=== PATIENT | female | born 1975 | race Caucasian/White ===

== ENCOUNTER → 2019-05-23 | Outpatient (CLI) | payer OTHER, SELFPAY ==
[2019-05-23 13:43] LABS: Hematocrit 40.8 % (37-47); Hemoglobin 13.3 g/dL (12.0-15.0); Mean Corp Hgb Conc 32.6 g/dL (32-36); Mean Corpuscular Hgb 30.7 pg (27.0-32.0); Mean Corpuscular Volume 94.2 fL (81-99); Mean Platelet Vol. 9.6 fl (6.2-12.0); Platelet Count 199 K/mm3 (150-450); RBC Distribution Width CV 12.7 % (11.6-14.6); RBC Distribution Width SD 43.8 fl (35.1-43.9); Red Blood Count 4.33 M/mm3 (4.2-5.4); White Blood Count 4.1 K/mm3 (4.4-11.0)
[2019-05-23 14:01] LABS: Anion Gap 4 (5-15); BUN 11 mg/dL (7-18); BUN/Creat Ratio 14.5 RATIO (10-20); Calcium,Total 8.9 mg/dL (8.5-10.1); Chloride 107 mmol/L (98-107); Cholesterol 175 mg/dL (200); Creatinine, Serum 0.76 mg/dL (0.55-1.02); EST Glomerular Filtration Rate 89 mL/min (>60); Est Glom Filt Rate - Afr Amer 107 mL/min (>60); Glucose 87 mg/dL (74-106); High Density Lipoprotein 67 mg/dL; Potassium 3.9 mmol/L (3.5-5.1); Sodium Level 140 mmol/L (136-145); Thyroid Stim Hormone (TSH) 2.82 uIU/mL (0.358-3.74); Triglycerides 71 mg/dL; Very Low Density Lipoprotein 14 mg/dL (5-40); Vitamin D,25 Hydroxy 39.5 ng/mL (29.95-100.01)
[2019-05-25 16:07] LABS: Age Gdln ACOG Testing 30-65 (.)
[2019-05-25 21:32] LABS: HPV APTIMA, High Risk Negative (Negative); HPV Reflexed? YES, CHARGE PATIENT
== END | disposition home or self-care (01) ==
LOC: WOBLAB 10:19
PROVIDERS: Visit Provider Obstetrics & Gynecology
DX: E55.9 Vitamin D deficiency, unspecified (principal); Z12.4 Encounter for screening for malignant neoplasm of cervix; Z13.9 Encounter for screening, unspecified
CPT/HCPCS: 36415; 80048; 80061; 82306; 84443; 85027; 87624; 88175; G0145

== ENCOUNTER → 2019-06-08 16:44 | Outpatient (CLI) | payer OTHER, SELFPAY ==
--- NOTE | 2019-06-08 16:48 | BI_ITS ---
MAMMOGRAPHY - BILATERAL SCREENING REASON FOR EXAM: Female, 44 years old. Routine annual screening examination. PERTINENT HISTORY: Non-contributory. TECHNIQUE: Digital bilateral breast sandra (3D mammographic acquisition) in the CC and MLO projections. 2-D mediolateral oblique (MLO) and craniocaudad (CC) views of both breasts were obtained. CAD: Full Field Digital Mammography with Computer Added Detection was performed. COMPARISON: None. Baseline examination. FINDINGS: Breast Composition: The breasts are heterogeneously dense, which may obscure small masses. There are no dominant masses or suspicious calcifications. No other significant abnormalities are identified. BI/SCREEN MAMM (CAD) W/SANDRA BILAT IMPRESSION: Negative screening mammogram. Yearly followup mammogram recommended. (A) ASSESSMENT CATEGORY: BIRADS Category 1: Negative. A letter regarding these results will be sent to the patient by the facility within 30 days. Approximately 10% of breast cancers are not detected by mammography. A normal mammogram should not delay biopsy of a clinically suspicious abnormality. [id number] Electronically Signed: Norm Fortune, at 9:31 EST , Service support ,
== END ==
PROVIDERS: Family Provider Family Medicine; PCP Family Medicine; Referring Provider Obstetrics & Gynecology; Visit Provider Obstetrics & Gynecology
DX: Z12.31 Encounter for screening mammogram for malignant neoplasm of breast (principal)
CPT/HCPCS: 77063; 77067

== ENCOUNTER → 2020-07-01 | Outpatient (CLI) | payer OTHER, SELFPAY ==
--- NOTE | 2020-07-01 14:15 | EMB_PTH ---
PATIENT: KENDRICK WALDEN LOC: [facility] U#:[id number] AGE/SX: 45/F ROOM: RE07/01/[address]: Dr. Chris Anna MD : 1975 BED: DIS: 07/01/2020 SPEC #: [id number] RECD: 07/01/20 17:09 STATUS: ROCIO REQ #: [id number] AUGUSTUS: 07/01/20 14:[address]: Chris Anna DEPT: SURGICAL PATHOLOGY RECD BY: Carmen Sanders ENTERED: 07/02/20 07:36 SP TYPE: ENDOM BX/C OTHR DR: Dr. Rick Cancino MD Tissues: Endometrium, NOS Procedures: Surgery Specimen Level IV HEADER OPERATION: Endometrial biopsy PRE-OP DIAGNOSIS: N95.6 TISSUE SUBMITTED: Endometrial biopsy MICROSCOPIC DIAGNOSIS Endometrium, biopsy: Secretory endometrium. AM:rosaura 07/03/20 MICROSCOPIC DESCRIPTION Slides are reviewed. GROSS DESCRIPTION Received in fixative is one container labeled with the patient's name and designated endometrial biopsy. The specimen consists of multiple irregular fragments of light pink-hoskins soft tissue that in aggregate measure 2 x 1 x 0.1 cm. The specimen is totally submitted in one cassette. / AM:rosaura 07/02/20 TC:5 CPT: 20432
== END | disposition home or self-care (01) ==
LOC: LABSPEC 14:53
PROVIDERS: PCP Family Medicine; Visit Provider Obstetrics & Gynecology
DX: N85.8 Other specified noninflammatory disorders of uterus (principal)
CPT/HCPCS: 88305

== ENCOUNTER 2020-08-12 08:23 | Day surgery (SDC) | payer OTHER, SELFPAY ==
[2020-08-07 17:01] LABS: Hematocrit 38.5 % (37-47); Hemoglobin 12.3 g/dL (12.0-15.0); Mean Corp Hgb Conc 31.9 g/dL (32-36); Mean Corpuscular Volume 93.9 fL (81-99); Mean Platelet Vol. 9.4 fl (6.2-12.0); Platelet Count 273 K/mm3 (150-450); RBC Distribution Width CV 12.7 % (11.6-14.6); RBC Distribution Width SD 44.2 fl (35.1-43.9); White Blood Count 5.6 K/mm3 (4.4-11.0)
[2020-08-07 17:12] LABS: Partial Thromboplast Time 23.6 Seconds (24.1-36.2); Prothrombin Time (Protime)PT. 12.3 SECONDS (11.7-14.9)
[2020-08-07 18:13] LABS: Thyroid Stim Hormone (TSH) 1.69 uIU/mL (0.358-3.74)
--- NOTE | 2020-08-11 17:38 | PCM.HP.BLA ---
History and Physical Date of Admission: 08/12/20 Surgical History and Physical Nicole Rivera, a 45 year old female 2 0 1 0 2, presents for HTA, Hysteroscopy and D and C on August 12, 2020 at 10:30. --Menorrhagia --Regular heavy menses and LMP of 07-31-20 lasting her average of 5-6 days. Associated signs and symptoms are heavy menses noted for last year. Additional comments are: Admits pain has improved since late Wednesday.; Additional comments are: history of tubal. EMBx and U/S ok. MEDICATIONS HISTORY: ALLERGIES: NKDA, Adhesive, Rash, Betadine, Rash, Adhesive, Rash, Betadine, Rash, Formaldehyde, Respiratory distress, Augmentin and Skin irritation Infections - Chicken pox and mono Illnesses - eczema Accidents - no injuries of consequence Hospitalizations - Childbirth and see surgery Review of Systems: GENERAL - Denies fever, or chills SKIN - Denies skin changes EYES - Denies visual changes EARS - Denies difficulty hearing NOSE - Denies nasal congestion or bleeding MOUTH - Denies sore throat or difficulty swallowing NECK - Denies pain or swelling RESPIRATORY - Denies shortness of breath or wheezing CARDIOVASCULAR - Denies palpitations or chest pain GASTROINTESTINAL - Denies nausea, vomiting, diarrhea, constipation GENITOURINARY - Denies dysuria, frequency of urination, incontinence of urine MUSCULOSKELETAL - Denies joint or muscle pain NEUROLOGICAL - Denies localized numbness or weakness PSYCHIATRIC - Denies depression or anxiety ENDOCRINE - Denies heat or cold intolerance, weight loss or gain HEMATO-IMMUNOLOGIC - Denies excessive bleeding with cuts SOCIAL HISTORY: Alcohol Use - socially Smoking - Never Diet - moderate, balanced diet and caffeine < 2 drinks per day Lifestyle - Exercise - minimal Seat Belt Use - always 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 Father: Sanders's disease-lung problem. Paternal Grandmother: Colon Cancer. Paternal Grandfather: DM II. MENSTRUAL HISTORY: LMP Known?- Definite Amount/Duration - 4-5 days, Regularity - Irregular, Frequency - variable days, LMP - 07/31/20, Age Onset Menarche - 14 PAST PREGNANCIES: Total Pregnancies - 3; Full Term Pregnancies - 2; Premature - 0; Abortions, Induced - 0; Abortions, Spontaneous - 1; Ectopics - 0; Multiple Births - 0; Living Children - 2 SURGICAL HISTORY: 1. BUNIONS 1998 R AND L FOOT 2. 07/03/2011 ; Renee Kinsey M.D. 3. Appendectomy, , 2017 4. Umbilical hernia, 2016 5. 07/04/2014 /BTO ; Renee Kinsey M.D. PHYSICAL EXAM BP- 124/76 Sitting, Right arm, regular cuff Weight- 191.29557 lbs Height- 66.75 inch BMI:30.20 CONSTITUTIONAL - NAD, well nourished, and well developed HEENT - Normocephalic, PERRLA, EOMI NECK - no nuchal rigidity LUNGS - clear to auscultation CARDIAC - normal s1, normal s2, no s3 BREAST - no dominant masses, no tenderness, no axillary adenopathy, no nipple discharge and no skin changes ABDOMEN - no masses, no tenderness EXTREMITIES - No edema or calf tenderness NEUROLOGICAL - Cranial nerves II-XII grossly intact PSYCHIATRIC - A and O to time, place, person, mood and affect PAP SMEAR - done DETAILED PELVIC EXAM External Genital Vagina - non-tender without lesions Urethra/Urethral Meatus - non-tender Bladder - non-tender Vagina - vaginal olivarez are pink and moist without loss of rugae and no evidence of atropy Cervix - without cervical motion tenderness and has normal size and features without evident lesions Uterus - 5-6 cm in size, mobile and nontender Adnexa - clear without masses or tenderness Rectal - deferred ASSESSMENT/PLAN: 1. Dysmenorrhea and Premenopausal Menorrhagia Reviewed pelvic u/s with patient and it is normal with possible EM polyp present. Discussed options for treatment including OCPs, ablation, or other surgery. Pt desires to proceed with the ablation. Discussed RBAs and all questions answered.
--- NOTE | 2020-08-12 | EMB_PTH ---
PATIENT: KENDRICK WALDEN [place] [facility] [place][id number] AGE/SX: 45/F ROOM: RE08/12/[address]: Dr. Chris Anna MD : 1975 BED: DIS: 08/12/2020 SPEC #: [id number] RECD: 08/12/20 13:16 STATUS: ROCIO RENisreen #: [id number] AUGUSTUS: 08/12/20 00:[address]: Chris Anna DEPT: SURGICAL PATHOLOGY RECD BY: Shar Meraz ENTERED: 08/13/20 07:20 SP TYPE: ENDOM BX/C OTHR DR: Dr. Rick Cancino MD Tissues: Endometrium, NOS Procedures: Surgery Specimen Level IV HEADER OPERATION: Hysteroscopy, D & C hydroblation PRE-OP DIAGNOSIS: Menorrhagia TISSUE SUBMITTED: Endometrial curettings and polyp MICROSCOPIC DIAGNOSIS Endometrial polyp and curettings: Polypoid fragments of proliferative endometrium with focal recent hemorrhage. AM:rosaura 08/13/2020 MICROSCOPIC DESCRIPTION Slides are reviewed. GROSS DESCRIPTION Received in fixative is one container labeled with the patient's name and designated endometrial curettings and polyp. The specimen consists of multiple fragments of hemorrhagic soft tissue that in aggregate measure 3 x 2.5 x 0.3 cm. The specimen is totally submitted in one cassette. / SJ:rosaura 08/12/20 TC:5 CPT: 05030
[2020-08-12 08:56] LABS: Internal QC Validated? YES +Cl - CLEAR BKGD; Pregnancy, Urine Negative Negative
[2020-08-12 09:10] VITALS: BP 109/77; PULSE 83; RESP 16; TEMP 36.3; O2SAT 100; BMI 29.3
[2020-08-12] MEDS: Lactated Ringers 1,000 ML 100 ML IV (09:13)
--- NOTE | 2020-08-12 12:11 | OP.PCM_ITS ---
Report of Operation Date of Procedure: 08/12/20 Pre-Operative Diagnosis: Menorrhagia Post-Operative Diagnosis: Menorrhagia Surgery/Procedure Performed:: Diagnostic Hysteroscopy, Dilation and Curettage, Hydrothermal Ablation Description of Surgical Findings:: 8 cm endometrial cavity with plush endometrium noted. No polyps or fibroids visualized. Cervix which protruded to within 1 cm of the uterine introitus with tenaculum pulldown which would make laparoscopic-assisted vaginal hysterectomy feasible if hysterectomy were ever needed. Type of Anesthesia:: General - LMA Anesthesiologist: González Lo Specimen's removed: Endometrial curettings Estimated Blood Loss (mL): Minimal Fluids Replaced: Crystalloid Description of Procedure: Surgeon: Chris Anna MD, FACOG Indication: This is a 45 year old patient who has been having problems with extremely heavy menses. Conservative measures have not been helpful. Endometrial sampling was benign and pelvic ultrasound showed that ablation may be helpful. Pt has been counseled regarding the risks, benefits and alternatives of this procedure and all questions answered. She understands that only about half of patients will have amenorrhea after this procedure. Procedure: Patient taken to the operating room where after induction of general anesthesia the patient was prepped and draped in the usual sterile fashion. Bladder was drained of urine with a catheter. Anterior cervix grasped and cervix was dilated to about 17 [place] size. Hysteroscopic hydrothermal ablation (HTA) unit was place in the cervix and the above findings were noted. HTA unit was removed and the uterus was gently curretted removing all contents. An HTA ablation cycle was then carried out at about 90 degrees Centigrade for 10 minutes with virtually no fluid loss during the procedure. After an appropriate cool down the HTA unit was removed with minimal bleeding noted. The patient tolerated the procedure well and was taken to the recovery room in satisfactory condition. Sponge, instruments and needle counts were all correct. There were no apparent complications of the surgery. Cefotetan 2 gms IV was given prior to the procedure. Grafts/Implants Used: None - Complications None - Admit VTE Documentation VTE Present on Admission: Yes VTE Mechan Device Prophylaxis: SCD's
--- NOTE | 2020-08-12 12:15 | DCINST_ITS ---
Discharge Diet: No Restrictions Discharge Activity: Return to Normal Activity, May not drive while taking narcotic pain medications., May Shower, May Take a Tub Bath May resume sexual activity in: 4 weeks Call your doctor if you observe: Fever of 101 or Higher, Inability to urinate, Inability to have a bowel movement, Using more than one pad per hour Allergies/Adverse Reactions: Allergies Opsite clear plastic adhesive Allergy (Uncoded 07/02/14 14:34) Rash Medications to take at Discharge Folic/Mvi Ther-Min/Lycop/Lut [Corvita Tablet] 1 ea PO DAILY 08/02/20 Lactobacillus Acidophilus [Acidophilus Probiotic] 1 ea PO DAILY 08/02/20 Omega3,5,6,7,9 No.1/[place] Oil [Complete [place] Softgel] 1 ea PO DAILY 08/02/20 Oxycodone [Oxyir] 5 mg PO Q6H PRN PRN 7 Days #7 tablet 08/12/20 The following prescriptions were given: Oxycodone [Oxyir] 5 mg PO Q6H PRN PRN 7 Days #7 tablet PRN Reason: Pain Score 6-10 Transmission Status: Sent to [facility] Primary Care Physician: Rick Cancino MD [Primary Care Provider] - Test Results: Test results from this visit will be discussed in further detail at your follow- up appointment, if applicable. Please Follow Up With: Chris Anna MD When: 3-4 weeks
[2020-08-12 12:21] VITALS: BP 106/70; BP 109/77; PULSE 83; RESP 16; TEMP 36.2; O2SAT 100
[2020-08-12 12:31] VITALS: BP 102/66; BP 109/77; PULSE 67; RESP 14; O2SAT 97
[2020-08-12 12:45] VITALS: BP 109/77; BP 120/71; PULSE 65; RESP 14; O2SAT 98
[2020-08-12 12:51] VITALS: BP 109/74; BP 109/77; PULSE 60; RESP 14; TEMP 36.9; O2SAT 100
[2020-08-12] MEDS: oxyCODONE 5 MG Tablet PO (14:00)
[2020-08-12 14:33] VITALS: BP 109/77; BP 113/77; PULSE 65; RESP 16; TEMP 36.8; O2SAT 100
== END 2020-08-12 14:35 | disposition home or self-care (01) ==
LOC: SDC 08:26 → AC 08:28
PROVIDERS: Anesthesiology; PCP Family Medicine; Referring Provider Obstetrics & Gynecology; Visit Provider Obstetrics & Gynecology
PROC: 0U5B8ZZ Destruction of Endometrium, Via Natural or Artificial Opening Endoscopic (ICD-10-PCS; CPT 58563; principal; 2020-08-12 09:45)
DX: N84.0 Polyp of corpus uteri (principal); N94.6 Dysmenorrhea, unspecified; N92.4 Excessive bleeding in the premenopausal period; Z20.828 Contact with and (suspected) exposure to other viral communicable diseases
CPT/HCPCS: 00952; 58563; 36415; 81025; 84443; 85027; 85610; 85730; 86850; 86900; 86901; 87426; 88305; C9803; J7120; J2405

== ENCOUNTER → 2022-12-01 | Outpatient (CLI) | payer OTHER, SELFPAY ==
[2022-12-01 10:46] LABS: Hemoglobin A1c 4.9 % (3.8-5.6)
[2022-12-01 10:48] LABS: Progesterone Level 0.41 ng/mL (See Comment)
[2022-12-01 10:49] LABS: Cholesterol 214 mg/dL (200); Estradiol 55.1 pg/mL; Follicle Stimulating Hormone 18.9 mIU/mL; High Density Lipoprotein 81 mg/dL; Luteinizing Hormone 18.3 mIU/mL; Thyroid Stim Hormone (TSH) 3.17 uIU/mL (0.358-3.74); Triglycerides 55 mg/dL; Very Low Density Lipoprotein 11 mg/dL (5-40)
[2022-12-03 12:09] LABS: Vitamin D 1,25-Dihydroxy 41.7 pg/mL (24.8-81.5)
== END | disposition home or self-care (01) ==
LOC: WOBLAB 09:07
PROVIDERS: PCP Family Medicine; Visit Provider Student in an Organized Health Care Education/Training Program
DX: Z01.419 Encounter for gynecological examination (general) (routine) without abnormal findings (principal)
CPT/HCPCS: 36415; 80061; 82652; 82670; 83001; 83002; 83036; 84144; 84443

== ENCOUNTER → 2022-12-09 | Outpatient (CLI) | payer OTHER, SELFPAY ==
--- NOTE | 2022-12-09 12:29 | BI_ITS ---
MAMMOGRAPHY - BILATERAL SCREENING REASON FOR EXAM: Female, 47 years old. Routine annual screening examination. PERTINENT HISTORY: Non-contributory. TECHNIQUE: Digital bilateral breast sandra (3D mammographic acquisition) in the CC and MLO projections. 2-D mediolateral oblique (MLO) and craniocaudad (CC) views of both breasts were obtained. CAD: Full Field Digital Mammography with Computer Added Detection was performed. COMPARISON: Comparison is made with prior examination of June 08, 2019. FINDINGS: Breast Composition: The breasts are heterogeneously dense, which may obscure small masses. There are no dominant masses or suspicious calcifications. No other significant abnormalities are identified. There has been no significant change since the prior study. BI/SCRN MAMM (CAD)W/SANDRA BILAT IMPRESSION: Stable bilateral screening mammogram. Yearly follow-up mammogram recommended. (A) ASSESSMENT CATEGORY: BIRADS Category 1: Negative. A letter regarding these results will be sent to the patient by the facility within 30 days. Approximately 10% of breast cancers are not detected by mammography. A normal mammogram should not delay biopsy of a clinically suspicious abnormality. [id number] Electronically Signed: Norm Fortune MD at 13:40 EDT ,
== END | disposition home or self-care (01) ==
LOC: OPBI 12:28
PROVIDERS: PCP Family Medicine; Referring Provider Student in an Organized Health Care Education/Training Program; Visit Provider Student in an Organized Health Care Education/Training Program
DX: Z12.31 Encounter for screening mammogram for malignant neoplasm of breast (principal)
CPT/HCPCS: 77063; 77067

== ENCOUNTER → 2025-06-20 | Outpatient (CLI) | payer OTHER, SELFPAY ==
--- OUTSIDE RECORDS SUMMARY | 2025-06-20 16:41 | XMS RPT_ITS | CCD ---
Author Organization [facility] Care Team Providers Care Nitro Worker Name Role Phone Jimmie DELEON, Lo Chavis Unavailable [phone] Jimmie DELEON, Lo Chavis Unavailable [phone] ([place]), [facility] Unavailable Jerome GREEN, Dr. Shlomo Mcclure. Unavailable Kelly MEDIA BUYER, Denice Unavailable Barak GREEN, Mercy Mendez Unavailable Karlos MEDIA BUYER, Aarti Carmona Unavailable Unavailable Martine DELEON, Radha Grant Unavailable Pardeep MEDIA BUYER, Nilsa Unavailable Unavailable Emily CORNELIUS, Radha Turk Unavailable Unavaila ble Hiren MEDIA BUYER, Brendan Unavailable Unavailable Finesse (Scribe), Donovan Unavailable Unavailab le Kodak MEDIA BUYER, Anaid Sexton Unavailable Unavailab le Lisa MEDIA BUYER, Libia Unavailable Unavailab le Miguel MEDIA BUYER, Shi Unavailable Unavailabl e Kassidy MEDIA BUYER, Mariaelena Unavailable Unavailable Unavailable Unavailable HODAN HOWELL DPM Admitting Unavailable HODAN HOWELL DPM Primary Care Unavailable HODAN HOWELL DPM Attending Unavailable [facility] Consulting Unavailable PROVIDER, UNKNOWN Consulting Unavailable PROVIDER, UNKNOWN Consulting Unavailable PROVIDER, UNKNOWN Consulting Unavailable HODAN HOWELL DPM Admitting Unavailable HODAN HOWELL DPM Primary Care Unavailable HODAN HOWELL DPCarlie Attending Unavailable MERCY CANCINO Consulting Unavailable PROVIDER, UNKNOWN Consulting Unavailable PROVIDER, UNKNOWN Consulting Unavailable PROVIDER, UNKNOWN Consulting Unavailable SHLOMO WILD Admitting Unavailable SHLOMO WILD Primary Care Unavailable SHLOMO WILD Attending Unavailable MERCY CANCINO Consulting Unavailable PROVIDER, UNKNOWN Consulting Unavailable PROVIDER, UNKNOWN Consulting Unavailable PROVIDER, UNKNOWN Consulting Unavailable [facility] Unavailable Millicent Moffett PA-C Unavailable Vicky Hendricks MA Unavailable Unavailable Lizabeth Heart Referring Unavailable Lizabeth Heart Attending Unavailable Mer[facility] Cancino Primary [facility] Unavailable Allergies Allergy Classification Reported Allergen(s) Allergy Type Date of Onset Reaction(s) Facility (4 sources) Augmentin *PENICILLINS* [facility] ([facility] source) Adhesive agent; Translations: [ADHESIVE] Propensity to adverse reactions (disorder) [facility]ository (1 source) Adhesive Tape Drug allergy (disorder) 5 [facility] Rep[facility] (1 source) Dressing: Non-Medicated; Translations: [Dressing: Non-Medicated] Propensity to adverse reactions (disorder) 3 [facility] Medications Current Medications Medication Drug Class(es) Dates Sig (Normalized) Sig (Original) lactobacillus acidophilus [id number] unt oral capsule (1 source) Start: 08-02-2020 Lactobacillus Acidophilus Active 1 EACH PO DAILY August 02, 2020 1:00am Epjcvv-Xfu-Yw-Lycopen e-Lutein (1 source) Start: 08-02-2020 Qrnbjd-Vkb-Su-Lycope ne-Lutein Active 1 EACH PO DAILY August 02, 2020 1:00am Omega3,5,6,7,9 No.1-[place] Oil (1 source) Start: 08-02-2020 Omega3,5,6,7,9 No.1-[place] Oil Active 1 EACH PO DAILY August 02, 2020 1:00am Completed/Discontinued Medications Medication Drug Class(es) Dates Sig (Normalized) Sig (Original) [id number] 200 actuat albuterol 0.09 mg/actuat metered dose inhaler (4 sources) beta2-Adrenergic Agonist Start: 03-12-2014 End: 05-06-2015 take 2 puff(s) by inhalation every four to six hours as needed VENTOLIN HFA, 108 (90 Base)MCG/ACT (Inhalation Aerosol Solution) ; 2 (two) puffs every 4-6 hours as needed for 0 days Quantity: 1 {Inhaler} Refills: 0 Ordered: 06-May-2015 Start: 12-Mar-2014 End: 06-May-2015 Status: Inactive Comments: Medication taken as needed. Comment on above: Medication taken as needed. amoxicillin 875 mg / clavulanate 125 mg oral tablet (4 sources) Penicillin-class Antibacterial Start: 07-09-2017 End: 06-10-2023 Augmentin 875 mg-125 mg tablet ; 1 Tablet two times daily for 10 days Quantity: 20 {Tablet} Refills: 0 Ordered: 10-Jun-2023 MD Mercy Cancino Start: 09-Jul-2017 End: 10-Jun-2023 Status: Discontinued Comments: Discontinued by Medication vendor. Comment on above: Discontinued by [facility] vendor. azithromycin 250 mg oral tablet (4 sources) Macrolide Antimicrobial Start: 05-31-2019 End: 06-14-2019 Zithromax Z-Dejon 250 MG Oral Tablet ; 2 (two) Tablet today and then 1 tablet daily x 4 days for 0 days Quantity: 1 {Package} Refills: 0 Ordered: 14-Jun-2019 MALLORY Rivera Start: 31-May-2019 End: 14-Jun-2019 Status: Inactive cephalexin 500 mg oral capsule (4 sources) Cephalosporin Antibacterial Start: 06-10-2023 End: 06-20-2023 cephALEXin 500 mg capsule ; 2 (two) Capsule bid for 10 days Quantity: 40 {Capsule} Refills: 0 Ordered: 10-Jun-2023 MD Mercy Cancino Start: 10-Jun-2023 End: 20-Jun-2023 Status: Inactive doxycycline hyclate 100 mg oral tablet (4 sources) Tetracycline-class Drug Start: 06-14-2019 End: 06-24-2019 take 1 tablet by mouth twice daily Doxycycline Hyclate 100 MG Oral Tablet ; 1 (one) Tablet BID for 10 days Quantity: 20 {Tablet} Refills: 0 Ordered: 14-Jun-2019 ADRIENNE Samuel Start: 14-Jun-2019 End: 24-Jun-2019 Status: Inactive Comments: ok to give capsule if cheaper; take each dose with a full glass of water Comment on above: ok to give capsule i f cheaper; take each dose with a full glass of water methylPREDNISolone 4 mg oral tablet (8 sources) Corticosteroid Start: 06-14-2019 End: 08-21-2019 take 1 tablet by mouth once Medrol 4 MG Oral Tablet Therapy Pack ; 1 (one) tablet use as directed per instructions in pack for 0 days Quantity: 1 {Package} Refills: 0 Ordered: 21-Aug-2019 MALLORY Gonzalez [facility] Jefferson Start: 14-Jun-2019 End: 21-Aug-2019 Status: Inactive Start: 02-02-2012 End: 02-08-2012 MEDROL (DEJON), 4MG (Oral Tabl et) ; 1 Tab as directed for 6 days Quantity: 1 {dose_pack} Refills: 0 Ordered: 15-Feb-2012 MD Mercy Cancino Start: 02-Feb-2012 End: 08-Feb-2012 Status: Inactive oxyCODONE hydrochloride 5 mg oral tablet (1 source) Opioid Agonist Start: 08-12-2020 End: 08-19-2020 take 5 mg by mouth every six hours as needed Oxycodone Discontinued 5 MG PO EVERY 6 HOURS NEEDED 01 29August 12, 2020 August 19, 2020 1:03am penicillin v potassium 500 mg oral tablet (4 sources) Start: 08-27-2015 End: 09-06-2015 take 1 tablet by mouth twice daily PENICILLIN V POTASSIUM, 500MG (Oral Tablet) ; 1 (one) Tablet BID for 10 days Quantity: 20 {Tablet} Refills: 0 Ordered: 27-Aug-2015 ADRIENNE Samuel Start: 27-Aug-2015 End: 06-Sep-2015 Status: Inactive predniSONE 20 mg oral tablet (8 sources) Start: 02-16-2012 End: 02-14-2014 take 3 tablets by mouth once daily, then take 2 tablets by mouth once daily, then take 1 tablet by mouth once daily, then take 0.5 tablet by mouth once daily PREDNISONE, 20MG (Oral Tablet) ; 1 Tablet as directed below for 0 days Quantity: 20 {Tablet} Refills: 0 Ordered: 14-Feb-2014 MALLORY Rivera Start: 08-Aug-2012 End: 14-Feb-2014 Status: Inactive Comments: Take 3tabs qd for 3 days thenTake 2tabs qd for 3 days thenTake 1tab qd for 3 days thenTake 1/2tab qd for 4 days. Comment on above: Take 3tabs qd for 3 days thenTake 2tabs qd for 3 days thenTake 1tab qd for 3 days thenTake 1/2tab qd for 4 days. sulfamethoxazole 800 mg / trimethoprim 160 mg oral tablet (4 sources) Dihydrofolate Reductase Inhibitor Antibacterial, Sulfonamide Antimicrobial Start: 08-21-2019 End: 09-04-2019 take 1 tablet by mouth twice daily Bactrim DS 800-160 MG Oral Tablet ; 1 (one) Tablet bid for 14 days Quantity: 28 {Tablet} Refills: 0 Ordered: 21-Aug-2019 MD Mercy Cancino Start: 21-Aug-2019 End: 04-Sep-2019 Status: Inactive triamcinolone acetonide 1 mg/ml topical cream (4 sources) Corticosteroid Start: 08-08-2012 End: 02-20-2014 TRIAMCINOLONE ACETONIDE, 0.1% (External Cream) ; 1 (one) Application(s) two times daily for 0 days Quantity: 80 {gram(s)_tube} Refills: 3 Ordered: 20-Feb-2014 MALLORY Mendoza Start: 08-Aug-2012 End: 20-Feb-2014 Status: Inactive Problems Active Problems Problem Classification Problem Date Documented Date Episodic/Chronic Abdominal pain (12 sources) Abdominal pain; Translations: [Unspecified abdominal pain] 11-18-2016 Episodic Administrative/social admission (8 sources) Issue of repeat prescriptions 02-16-2012 Episodic Allergic reactions (12 sources) Eczema; Translations: [Dermatitis, unspecified] 08-30-2012 Episodic Chronic obstructive pulmonary disease and bronchiectasis (20 sources) Bronchitis; Translations: [Bronchitis, not specified as acute or chronic] 06-09-2019 Episodic Lymphadenitis (4 sources) Lymphadenopathy; Translations: [Enlarged lymph nodes, unspecified] 04-24-2019 Episodic Other and unspecified benign neoplasm (2 sources) Other benign neoplasm of skin of trunk; Translations: [Other benign neoplasm of skin of trunk] Onset: 09-24-2023 Episodic Other lower respiratory disease (12 sources) Cough; Translations: [Cough] 06-15-2019 Episodic Other nutritional; endocrine; and metabolic disorders (4 sources) Overweight in adulthood with body mass index of 25 or more but less than 30; Translations: [Body mass index (BMI) 28.0-28.9, adult] 07-09-2017 Episodic Other screening for suspected conditions (not mental disorders or infectious disease) (5 sources) CT of abdomen abnormal; Translations: [Abnormal findings on diagnostic imaging of other abdominal regions, including retroperitoneum] Onset: 02-13-2025 12-01-2016 Episodic Other skin disorders (18 sources) Infection of sebaceous cyst; Translations: [Sebaceous cyst] 07-08-2023 Episodic Other skin disorders (1 source) Other follicular cysts of the skin and subcutaneous tissue; Translations: [Other follicular cysts of the skin and subcutaneous tissue] Onset: 09-24-2023 Episodic Other skin disorders (4 sources) Sebaceous cyst of skin; Translations: [Sebaceous cyst] 11-10-2023 Episodic Other upper respiratory infections (12 sources) Sinusitis; Translations: [Chronic sinusitis, unspecified] 08-21-2019 Chronic Other upper respiratory infections (12 sources) Upper respiratory infection; Translations: [Acute upper respiratory infection, unspecified] 10-10-2016 Episodic Otitis media and related conditions (4 sources) Acute suppurative otitis media; Translations: [Acute suppurative otitis media without spontaneous rupture of ear drum, right ear] 05-06-2015 Episodic Unclassified (2 sources) Number of Children 11-10-2023 Comment on above: 2. Past or Other Problems Problem Classification Problem Date Documented Da te Episodic/Chronic Appendicitis and other appendiceal conditions (4 sources) Appendicitis and other appendiceal conditions 11-18-2016 Unclassified (4 sources) Recheck back - Pt has cyst on left shoulder, given ATB. Here for f/u. 07-08-2023 Unclassified (4 sources) cyst? - pt seen you in the past for cyst 2016, gave antibiotics, did not remove it pt states that same spot is now flared up for the last week, tender to touchnot draining and red around the area reviewed by [facility] 06-10-2023 Unclassified (4 sources) Cold Symptoms - Symptoms include sneezing, nasal congestion, runny nose, ear fullness, productive cough and facial pain, but do not include ear pain, sore throat, fever, chills, general malaise or headache. The onset was sudden 3 week(s) ago. The symptoms occur constantly. The patient describes this as moderate in severity and unchanged. Current treatment includes non-prescription cold medication. Note for Upper respiratory infection: reviewed by [facility] 08-21-2019 Unclassified (4 sources) recheck - Patient is here to be rechecked from appointment on 05/31/2019 and at that point she was already 2 weeeks into the sickness. She is having a dry cough, nasal congestion, runny nose, wheezing, and PND. No fever, sore throat or ear pain. She was treated with zpak but did not. Was taking mucinex but changed to mucinex DM. Did have chest xray on Wednesday in which the patient stated was normal. 06-15-2019 Unclassified (4 sources) Cold Symptoms - Symptoms include ear fullness and productive cough, but do not include nasal congestion, runny nose, sore throat, wheezing, fever, chills or headache. The onset was gradual 2 week(s) ago. The symptoms occur constantly. The patient describes this as moderate in severity and worsening. Current treatment includes non-prescription cold medication. The patient has not been exposed to an individual with similar symptoms. Patient denies history of seasonal allergies, recurrent sinusitis, recurrent strep pharyngitis, asthma, tonsillectomy or recurrent ear infections. Note for Upper respiratory infection: [place] like cough was getting better until the weekend when it worsened. 05-31-2019 Unclassified (4 sources) Lump - Patient is here today to have lump looked at on the left side of neck. Been present for about 1 week. Patient first noticed when she moved her head and felt a slight discomfort on the left side of neck, noticed a pea-size lump, but the lump has increased in size. Patient tried home remedies such as peppermint oil, massage and drinking apple cider vinegar. A few weeks started with cold symptoms, symptoms are improving. reviewed by [facility] 04-24-2019 Unclassified (4 sources) Cold Symptoms - Symptoms include nasal congestion, runny nose, purulent discharge, ear fullness, sore throat, dry cough, productive cough, general malaise and facial pain, but do not include sneezing, fever, chills or headache. The onset was gradual 10 day(s) ago. The symptoms occur constantly. The patient describes this as moderate in severity and worsening. Current treatment includes non-prescription cold medication. Risk factors do not include smoking. The patient has been exposed to an individual with a cough and an individual with similar symptoms. Patient denies history of seasonal allergies or asthma. Note for Upper respiratory infection: reviewed by [facility] 12-05-2018 Unclassified (4 sources) Cold Symptoms - Symptoms include nasal congestion, ear fullness, sore throat (slightly), productive cough (in the mornings, green sputum) and general malaise, but do not include runny nose, ear pain, wheezing (no shortness of breath), fever, chills, headache or facial pain. The onset was 5 day(s) ago (been having cold sx off and on for the past 6 weeks, started feeling worse again 5 days ago). The symptoms occur constantly. The patient describes this as moderate in severity and worsening. Current treatment includes non-prescription cold medication (Nyquil) and a decongestant nasal spray. The patient has been exposed to an individual with an upper respiratory infection (possibly stayed at [facility] last weekend). Note for Upper respiratory infection: reviewed by [facility] 07-08-2018 Unclassified (4 sources) Skin lesion - The skin lesion appeared gradually and has been occurring for years (has always had a tiny lump under skin but never gcaused her any trouble up until this past Wednesday. Area has gotten sore and more inflammed and red. Lump is warm to touch and very tender.). It has been increasing in size. The lesion is characterized as red. The lesion is located on the back (upper right back just above bra strap.). Note for Skin lesion: reviewed by [facility] 07-09-2017 Unclassified (4 sources) Abdominal pain - The onset of the abdominal pain has been variable and has been occurring in an intermittent pattern for 1 week. The course has been recurrent. The pain is described as a moderate stabbing. The pain is located in the right upper quadrant and periumbilical area. The symptoms have no aggravating factors. The symptoms have been associated with nausea (on occasion), while the symptoms have not been associated with abdominal distention, bloody stools, chest pain, diarrhea, fever or heartburn. Note for Abdominal pain: No precipitating factors, not rlated to meals. Feels it more w laying down. 10-28-2016 Unclassified (4 sources) Cold Symptoms - Symptoms include ear pain, sore throat and dry cough, but do not include fever or headache. The onset was gradual 3 day(s) ago. The symptoms occur constantly. The patient describes this as moderate in severity and worsening. The patient is not currently being treated for this problem. The patient has been exposed to an individual with similar symptoms. 10-10-2016 Unclassified (4 sources) Cold Symptoms - Symptoms include nasal congestion, runny nose, ear pain (bilateral), productive cough, chills, general malaise and headache, but do not include sneezing, sore throat, scratchy throat or fever. The onset was sudden 6 day(s) ago. The symptoms occur constantly. The patient describes this as moderate in severity and worsening. Current treatment includes non-prescription cold medication. Note for Upper respiratory infection: reviewed by [facility] 09-17-2015 Unclassified (4 sources) Cold Symptoms - Symptoms include nasal congestion, ear pain, sore throat (worst symptom with swollen LNs), dry cough (slight), fever, chills, general malaise and headache. The onset was sudden 2 day(s) ago (had cold a couple of weeks ago but that resolved completely). The symptoms occur constantly. The patient describes this as moderate in severity and worsening. Current treatment includes non-prescription cold medication, acetaminophen and NSAIDs. Risk factors do not include smoking. The patient has been exposed to an individual with an upper respiratory infection. Patient denies history of tonsillectomy. 08-27-2015 Unclassified (4 sources) Cold Symptoms - Symptoms include nasal congestion, runny nose (minimally), purulent discharge, ear fullness, sore throat, dry cough and general malaise, but do not include sneezing, ear pain, fever or headache. The onset was gradual 4 day(s) ago. The symptoms occur constantly. The patient describes this as moderate in severity and worsening. Current treatment includes NSAIDs. Risk factors do not include smoking. The patient has not been exposed to an individual with similar symptoms. Medical history includes recurrent sinusitis (yearly), but patient denies history of asthma, tonsillectomy or recurrent ear infections. Note for Upper respiratory infection: Pt c/o swollen glands on the right side of her neck. 05-06-2015 Unclassified (4 sources) Recheck cough - Pt here today because she continues to have a cough which is mainly a dry cough. Was seen in January for this and OTC zantac given due to concurrent acid reflux. No improvement so claritin was recommended. Pt did Claritin for 14 days without improvement of her cough. Previous nasal symptoms have resolved. She recently moved into a new house and there is new carpet in her bedroom - notices symptoms are worse at night. The new carpet has formaldehyde and she wonders if she is allergic to that. Had an episode one time of coughing and sneezing when she was vacuuming the floor. Cough has been improving somewhat but will seem to get better and will start again. Pulse ox 98%. Some wheezing and tickling when she tries to take a deep breath in. Nasal drainage is clear- had been yellow/green. Sneezing fits. Has continued with the zantac as this has resolved her acid reflux symptoms. 03-15-2014 Unclassified (4 sources) Cough - The onset of the cough has been acute and has been occurring in a persistent pattern for 1 month. The cough is characterized as dry. The cough occurs all the time. There is no fever, headache or runny nose. Note for Cough: Some nasal congestion and ears are slightly achy. No shortness of breath or wheezing. She is 19 weeks . She had another episode where she had this and they sent her to have further evaluation and it was determined that symptoms were related to acid reflux. Pt has been having heartburn and occasionally takes TUMs or zantac for this. No history of seasonal allergies. 02-14-2014 Unclassified (4 sources) Cold Symptoms - Symptoms include ear pain, sore throat, dry cough (barky; wheezing?; no shortness of breath), general malaise and headache, but do not include fever. The onset was gradual 1 week(s) ago. The symptoms occur constantly. The patient describes this as moderate in severity and unchanged. Current treatment includes non-prescription cold medication (nyquil and dayquil). 02-17-2013 Unclassified (4 sources) Rash - The onset of the rash has been acute and has been occurring in a persistent pattern for 4 weeks. The course has been increasing. The rash is characterized as red, crusty, weeping and raised above the skin (early onset). The rash was first seen on the upper extremity (fingers). It spread to no progression (only spread on right hand.). There has been associated itching (in the am's mostly), pain and drainage. There has been no associated fever, loss of sensation, mucous membrane lesions or nail changes (not that she is noting). 08-08-2012 Unclassified (4 sources) ezcema not better - pt here c/o of ezcema not getting any better. Called in last wk and given cream and not getting any better. Took prednisone and it wipes it out. Started at age 35 with the ezcema. Is on her finger tips and makes it tender. She normally does well but when exposed to stronger chemical agents she gets incrfeased sx. Flare up this time seems related to recent use of baby wipes. 02-02-2012 Unclassified (3 sources) Recheck cyst - Recheck sebaceous cyst on upper back. Was treated for infection in June 2023 and improved but is still present. 09-13-2023 Unclassified (2 sources) Cold Symptoms - Symptoms include nasal congestion, runny nose, ear fullness, sore throat, productive cough (feeling it in her chest) and general malaise (fatigue and body aches), but do not include dry cough, wheezing, fever or chills. The onset was sudden 4 day(s) ago. The symptoms occur constantly. The patient describes this as mild and unchanged. Current treatment includes non-prescription cold medication and mucinex . Risk factors do not include child in daycare or smoking. The patient has been exposed to an individual with similar symptoms (family members). Patient denies history of seasonal allergies or recurrent sinusitis. 11-10-2023 NEGATED: Highlighted row has been ruled out!Unclassified (1 source) No Problem Information Available Results Test Name Value Interpretation Reference Range Facility Final Surgical Pathology Rep bety 09-28-2023 Final Surgical Pathology Report . Pathology Reports Accession: Collected Date/Time: Received Date/Time: Pathologist: [id number] 09/24/2023 11:00 EST 09/27/2023 08:08 RAY BURNHAM MD Final Surgical Pathology Report DIAGNOSIS: LEFT UPPER BACK, SOFT TISSUE LESION, EXCISION: - RUPTURED AND INFLAMED EPIDERMAL INCLUSION CYST CLINICAL INFORMATION: EPIDERMAL CYST Procedure: EXCISION EPIDERMAL INCLUSION CYST SPECIMEN: A LEFT UPPER BACK SOFT TISSUE LESION GROSS DESCRIPTION: The microscopic examination is performed, except in the case of Gross Only. Dictated by [facility] MICROSCOPIC DESCRIPTION: The microscopic examination is performed, except in the case of Gross Only. Electronically Signed by Pathology Report verified by [facility] RAY BANSAL Sign out Date: 09/28/2023 15:49 Performing Lab: [facility], [address] [place] [address] Pathology Dept Disclaimer If ancillary studies were utilized, the following Laboratory Developed Test (LDT) disclaimer will apply: Under CLIA requirements, [facility] is qualified to perform high complexity testing. For all ancillary stains, positive and negative controls stain appropriately. Performance characteristics of immunohistochemical and chromogenic in-situ hybridization tests have been determined by [facility]. These tests are used for clinical purposes, They should not be regarded as investigational or for research. Normal [facility] ([place]) Basophil percentageOrdered B y: Dr. Heart on 12-01-2022 Cholesterol [Mass/Vol] 214 mg/dL <200 [facility] Comment on above: <200 mg/dL Desirable 200-240 mg/dL Borderline >240 mg/dL High Risk Triglyceride [Mass/Vol] 55 mg/dL <199 [facility] Comment on above: The drugs N-Acetylcy steine and Metamizole may falsely depress this assay.Serum Triglycerides Reference Interval Normal <150 mg/dL Borderline high 150 - 199 mg/dL High 200 - 499 mg/dL Very High > or = 500 mg/dL No Panel InformationOrdered By: Dr. Heart on 12-01-2022 Follicle Stimulating Hormone 18.9 mIU/mL [facility] Comment on above: NORMAL REFERENCE RAN [facility] FEMALE FOLLICULAR 2.3 - 12.6 mIU/mL MID-CYCLE PEAK 5.2 - 17.5 mIU/mL LUTEAL 1.7 - 12.9 mIU/mL POST-MENOPAUSAL ON MHT 5.9 - 72.8 mIU/mL NOT ON MHT 12.7 - 132.2 mlU/mL MALE 0.7 - 10.8 mIU/mL Luteinizing Hormone 18.3 mIU/mL [facility] Comment on above: NORMAL REFERENCE RAN GES FEMALE FOLLICULAR 1.9 - 26.2 mIU/mL MID-CYCLE PEAK 22.8 - 76.1 mIU/mL LUTEAL 0.6 - 16.6 mIU/mL POST-MENOPAUSAL ON MHT 1.1 - 52.4 mIU/mL NOT ON MHT 8.6 - 61.8 mIU/mL MALE 1.2 - 10.6 mIU/mL Thyroid Stimulating Hormone (TSH) 3.17 uIU/mL 0.358-3.74 [facility] Serum or plasma calcitriol m easurement (mass/volume)Ordered By: Dr. Heart on 12-01-2022 1,25-dihydroxyvitamin D3 [Mass/Vol] 41.7 pg/mL 24.8-81.5 [facility] Comment on above: Performed at: - [address] [id number] Director: Diana Zapata MD, Phone: [phone] Serum or plasma cholesterol in HDL measurement (mass/volume)Ordered By: Dr. Heart on 12-01-2022 Cholesterol in HDL [Mass/Vol] 81 mg/dL >40 [facility] Comment on above: The drugs N-Acetylcy steine and Metamizole may falsely depress this assay. Reference Range HDL <40 mg/dL Low HDL Cholesterol HDL >or= 60 mg/dL High HDL Cholesterol Serum or plasma cholesterol in VLDL measurement (mass/volume)Ordered By: Dr. Heart on 12-01-2022 Cholesterol in VLDL [Mass/Vol] 11 mg/dL 5-40 [facility] Serum or plasma estradiol (E 2) measurement (mass/volume)Ordered By: Dr. Heart on 12-01-2022 E2 [Mass/Vol] 55.1 pg/mL [facility] Comment on above: NORMAL REFERENCE RAN GES FEMALE FOLLICULAR 21.4 - 164.8 pg/mL MID-CYCLE PEAK 49.9 - 367.2 pg/mL LUTEAL 40.2 - 259.0 pg/mL POST-MENOPAUSAL ON MHT <11.0 - 462.1 pg/mL NOT ON MHT <11.0 - 58.3 pg/mL MALE <11.0 - 52.5 pg/mL NOTE:[employer] HAS CONFIRMED THE DRUG FULVETRANT (FASLODEX) MAY CAUSE FALSELY ELEVATED ESTRADIOL RESULTS WHEN USING THIS TEST METHOD. IF PATIENT IS TAKING FULVESTRANT AN ALTERNATIVE METHOD SHOULD BE USED TO DETERMINE ESTRADIOL CONCENTRATION. Serum or plasma low density lipoprotein (LDL) cholesterol measurement (mass/volume)Ordered By: Dr. Heart on 12-01-2022 Cholesterol in LDL [Mass/Vol] 122 mg/dL 0-130 [facility] Serum or plasma progesterone measurement (mass/volume)Ordered By: Dr. Heart on 12-01-2022 Progesterone [Mass/Vol] 0.41 ng/mL See Comment [facility] Comment on above: Progesterone Referen ce Table: UNITS Female: Follicular 0.15 - 1.40 ng/mL Luteal 3.34 - 25.56 ng/mL Mid-luteal 4.44 - 28.03 ng/mL Postmenopausal 0.0 - 0.73 ng/mL : 1st Trimester 11.22 - 90.00 ng/mL 2nd Trimester 25.55 - 89.40 ng/mL 3rd Trimester 48.40 -422.50 ng/mL Whole blood hemoglobin A1c/t otal hemoglobin ratio (mass fraction)Ordered By: Dr. Heart on 12-01-2022 HbA1c (Bld) [Mass fraction] 4.9 % 3.8-5.6 [facility] Comment on above: Normal < 5.7 % Predi abetic 5.7 - 6.4 % Diabetic >or= 6.5 % Please note range changes. MR ANKLE WO RTon 11-26-2022 MR ANKLE WO RT [place] [address] Patient: NICOLE RIVERA Phone#: : 1975 Age: 47 Gender: F Pt. Type: Out Account: [id number] Location: [facility] Ordering: [facility] Exam Date: 11/26/2022/11:42 Family Phys: Charge Code: [id number] Physician: [place] Order #: [id number] Dose#: CORRECTION to sections LATERAL LIGAMENTS TALOFIBULAR and CONCLUSION 2. It should read as follows: Split tear of peroneus brevis tendon Corrected on: 12/01/2022; PROCEDURE: MRI ANKLE RT WITHOUT CONTRAST COMPARISON: [facility], XR, ANKLE COMPLETE RT, 11/19/2022, 15:54. INDICATIONS: Left ankle sprain TECHNIQUE: A complete multi-planar examination was performed without contrast. FINDINGS: LATERAL LIGAMENTS AND SOFT TISSUE STRUCTURES TALOFIBULAR: Posterior talofibular ligament is thickened and attachs to the os trigonum and the fibula. CALCANEOFIBULAR: Normal. TIBIOFIBULAR: Normal. PERONEAL TENDONS:There is split tear of the peroneus longus tendon, series 4, image 17. MEDIAL LIGAMENTS AND SOFT TISSUE STRUCTURES DELTOID COMPLEX: Normal. SPRING LIGAMENT: Normal. TARSAL TUNNEL: Normal. FLEXORS: Normal. OTHER TENDONS EXTENSORS: Normal. ACHILLES: Normal. No surrounding abnormality. PLANTAR FASCIA: Normal. No tear or surrounding soft tissue edema to suggest fasciitis. SINUS TARSI: There is some edema in the sinus tarsi. BONES: Os trigonum is present and measures 0.5 x 1.1 cm. There is mild edema at the articulation with the posterior talus, series 6, image 16. EFFUSIONS: There is tibiotalar and talocalcaneal joint effusions. There is lobulated extruded joint effusion posterior to the talus, series 6, image 19 OTHER: No other significant findings. CONCLUSION: 1. Posterior talofibular ligament is thickened and attached to the os trigonum. There is mild edema within the os trigonum. Correlate for posterior impingement Continued Report - Page 2 of 2 Patient: ELIANStoneNICOLE Phone#: : 1975 Age: 47 Gender: F Pt. Type: Out Account: [id number] Location: [facility] Ordering: [facility] Exam Date: 11/26/2022/11:42 Family Phys: Charge Code: [id number] Physician: [place] Order #: [id number] Dose#: 2. Split tear of peroneus longus tendon 3. Joint effusion extending into the posterior lateral soft tissues. Dictated by: Estefania Strauss MD on 12/01/2022 at 14:55 Approved by: Estefania Strauss MD on 12/01/2022 at 15:25 Dictated by: Estefania Strauss MD on 12/01/2022 at 15:42 Approved by: Estefania Strauss MD on 12/01/2022 at 15:42 Normal [facility] ANKLE COMPLETE RTon 11-20-19 ANKLE COMPLETE RT [address] [address] Patient: MIGUEL NICOLE Phone#: : 1975 Age: 47 Gender: F Pt. Type: Out Account: [id number] Location: 052 Ordering: [facility] Exam Date: 11/19/2022/15:54 Family Phys: [facility] Charge Code: [id number] Physician: [place] Order #: [id number] Dose#: PROCEDURE: X-RAY ANKLE COMPLETE RT MIN 3 VIEWS COMPARISON: None. INDICATIONS: Sprain of unspecified ligament of right ankle. FINDINGS: BONES: Normal. No significant arthropathy or acute abnormality. Talar dome is intact. Joint space is maintained. Os trigonum is present measuring 0.7 x 1.3 cm. SOFT TISSUES: Negative. No visible soft tissue swelling. EFFUSION: Small joint effusion anterior to the tibiotalar articulation OTHER: Negative. CONCLUSION: 1. No acute osseous abnormality 2. Os trigonum Dictated by: Estefania Strauss MD on 11/19/2022 at 18:32 Approved by: Estefania Strauss MD on 11/19/2022 at 18:35 Normal [facility] - Chemistry and C hemistry - challengeon 10-28-2016 Albumin [Mass/Vol] 4.0 g/dL Normal 3.6 - 5.1 g/dL [employer], [employer], [employer] Albumin/Globulin [Mass ratio] 1.7 {ratio} Normal 1.0 - 2.5 [employer], [employer], [employer] ALP [Catalytic activity/Vol] 60 U/L Normal 33 - 115 U/L [employer], [employer], [employer] ALT [Catalytic activity/Vol] 12 U/L Normal 6 - 29 U/L [employer], [employer], [employer]. Amylase [Catalytic activity/Vol] 44 U/L Normal 21 - 101 U/L [employer], [employer], [employer]. AST [Catalytic activity/Vol] 10 U/L Normal 10 - 30 U/L [employer], [employer], [employer] Bilirubin [Mass/Vol] 0.4 mg/dL Normal 0.2 - 1 .2 mg/dL [employer], [employer].; [employer], [employer]. Calcium [Mass/Vol] 9.2 mg/dL Normal 8.6 - 10. 2 mg/dL [facility].; [facility], [facility]. Chloride [Moles/Vol] 105 mmol/L Normal 98 - 11 0 mmol/L [facility].; [facility], [facility]. CO2 [Moles/Vol] 30 mmol/L Normal 20 - 31 mmol/L [facility], [facility].; [facility], [facility]. Creatinine [Mass/Vol] 0.71 mg/dL Normal 0.50 - 1.10 mg/dL [facility], [facility].; [facility], [facility]. GFR/1.73 sq M.predicted among blacks MDRD (S/P/Bld) [Vol rate/Area] 123 {ML/MIN/1.73M2} Normal [facility], [facility].; [facility], [facility]. GFR/1.73 sq M.predicted MDRD (S/P/Bld) [Vol rate/Area] 107 {ML/MIN/1.73M2} Normal [facility], [facility].; [facility], [facility]. Globulin (S) [Mass/Vol] 2.4 g/dL Normal 1.9 - 3.7 g/dL [facility], [facility].; [facility], [facility]. Glucose [Mass/Vol] 89 mg/dL Normal 65 - 99 mg/dL [facility], [facility].; [facility], [facility]. Lipase [Catalytic activity/Vol] 21 U/L Normal 7 - 60 U/L [facility].; [facility], [facility]. Potassium [Moles/Vol] 4.0 mmol/L Normal 3.5 - 5.3 mmol/L [facility].; [facility] [employer] ([employer]) [facility] [place], [facility]. Protein [Mass/Vol] 6.4 g/dL Normal 6.1 - 8.1 g/dL [facility], [facility].; [employer] ([employer]) [facility] [place], [facility]. Sodium [Moles/Vol] 140 mmol/L Normal 135 - 146 mmol/L [facility].; [employer] ([employer]) [facility] [place], Inc. Urea nitrogen [Mass/Vol] 14 mg/dL Normal 7 - 25 mg/d L [facility], [facility].; [employer] ([employer]) [facility] [place], [facility]. Urea nitrogen/Creatinine [Mass ratio] 19.9 mg/mg Normal 6 - [address] [facility].; [facility] [employer] [facility] - Hematology and Cell countson 10-28-2016 Basophils (Bld) [#/Vol] 20 {Cells}/uL Normal 0 - 200 {Cells}/uL [facility].; [place] [employer], [employer]. Basophils/100 WBC (Bld) 0 % Normal 0 - 1 % H [facility].; [facility], [facility] Eosinophils (Bld) [#/Vol] 70 {Cells}/uL Normal 15 - 500 {Cells}/uL [facility].; [facility] [employer] [facility] Eosinophils/100 WBC (Bld) 1 % Normal 0 - 4 % [facility].; [place] [employer] Erythrocyte distribution width (RBC) [Ratio] 13.9 % Normal 11.0 - 15.0 % [facility].; [place] [employer], [employer] Hematocrit (Bld) [Volume fraction] 36.7 % Normal 35.0 - 45.0 % [facility].; [place] [employer], [facility] Hemoglobin (Bld) [Mass/Vol] 12.0 g/dL Normal 11.7 - 15.5 g/dL [facility].; [facility] [employer], [facility]. Lymphocytes (Bld) [#/Vol] 1490 {Cells}/uL Normal 850 - 3900 {Cells}/uL [facility].; [place] [employer], [facility] Lymphocytes/100 WBC (Bld) 27 % Normal 12 - 47 % [facility].; [place] [employer], [employer]. MCH (RBC) [Entitic mass] 29.7 pg Normal 27. 0 - 33.[address] [address] [facility].; [employer], [employer]. MCHC (RBC) [Mass/Vol] 32.7 g/dL Normal 32.0 - 36.0 g/dL [employer] ([employer]) [facility].; [place] [employer], [employer] MCV (RBC) [Entitic vol] 90.8 fL Normal 80.0 - 100.0 fL [facility].; [employer], [employer]. Monocytes (Bld) [#/Vol] 350 {Cells}/uL Normal 20 0 - 950 {Cells}/uL [facility].; [facility]. Monocytes/100 WBC (Bld) 6 % Normal 4 - 12 % H [facility].; [facility], [facility]. Neutrophils (Bld) [#/Vol] 3640 {Cells}/uL Normal 1500 - 7800 {Cells}/uL [facility], [facility].; [facility] [employer], [facility]. Neutrophils/100 WBC (Bld) 66 % Normal 40 - 75 % [facility].; [facility], [facility]. Platelet mean volume (Bld) [Entitic vol] 9.0 fL Normal 7.5 - 12.5 fL [facility].; [facility], [facility]. Platelets (Bld) [#/Vol] 246 10*3/uL Normal 140 - 400 10*3/uL [facility].; [facility] [employer], [employer]. Platelets LM Ql (Bld) NORMAL Normal [facility].; [facility], [facility] RBC (Bld) [#/Vol] 4.05 10*6/uL Normal 3.80 - 5.1 0 10*6/uL [facility].; [employer], [employer]. RBC morphology finding Nom (Bld) NORMAL Normal [facility].; [employer] ([employer]) [facility] [place], [facility]. WBC (Bld) [#/Vol] 5.6 10*3/uL Normal 3.8 - 10.8 10*3/uL [facility].; [employer], [employer] Laboratory - Microbiology an d Antimicrobial susceptibilityOrdered By: Anaid Candelario on 10-10-2016 S. pyogenes Ag EIA Ql (Throat) Negative Normal [facility]; [facility] [employer] [facility] - Microbiology an d Antimicrobial susceptibilityon 08-27-2015 S. pyogenes Ag EIA Ql (Throat) Positive Abnormal [facility]; [place] [employer], [facility] Vital Signs Date Time Vital Sign Value Performing Clinician Facility 11-10-2023 09:24-0400 Body height 167.64 cm Vicky Hendricks MA [facility]; [employer] [employer] 11-10-2023 09:24-0400 Body mass index (BMI) [Ratio] 31.96 kg/m2 Vicky Hendricks MA [facility], [facility].; [facility]. 11-10-2023 09:24-0400 Body surface area Derived from formula 1.99 m2 Vicky Hendricks MA [facility], [facility].; [facility], Inc[employer] 11-10-2023 09:24-0400 Body weight 89.81 kg Vicky Hendricks MA [facility], [facility].; [employer] ([employer]) [facility] [employer]. 11-10-2023 09:24-0400 Diastolic blood pressure 79 mm[Hg] Vicky Hendricks MA [facility].; [employer] ([employer]) [facility] [employer] [employer]. Comment on above: Patient Position: Sitting; Cuff Location : Left Arm; Cuff Size: Standard 11-10-2023 09:24-0400 Heart rate 80 /min Vicky Hendricks [facility].; [employer] ([employer]) [facility] [place], Inc[employer] Comment on above: Pattern: Regular 11-10-2023 09:24-0400 Inhaled oxygen concentration 21 % Vicky Hendricks [facility].; [employer]. Comment on above: Room air 11-10-2023 09:24-0400 SaO2% (BldA) [Mass fraction] 98 % Vicky Hendricks [facility].; [employer] ([employer]) [facility] [employer]. 11-10-2023 09:24-0400 Systolic blood pressure 111 mm[Hg] Vicky Hendricks MA [facility].; [employer] Comment on above: Patient Position: Sitting; Cuff Location : Left Arm; Cuff Size: Standard 09-13-2023 07:55-0500 Body height 167.64 cm [facility], [facility].; [employer] ([employer]) [facility]. 09-13-2023 07:55-0500 Body mass index (BMI) [Ratio] 31.15 kg/m2 [facility], [facility].; [place] [employer] 09-13-2023 07:55-0500 Body surface area Derived from formula 1.97 m2 [facility], [facility].; [employer] 09-13-2023 07:55-0500 Body weight 87.54 kg Alma Rosa Gonzalez MEDIA BUYER [facility], Inc.; [facility], [employer] 09-13-2023 07:55-0500 Diastolic blood pressure 83 mm[Hg] Alma Rosa Gonzalez [facility], [facility].; [facility], [employer] Comment on above: Patient Position: Sitting; Cuff Location : Left Arm; Cuff Size: Large 09-13-2023 07:55-0500 Heart rate 77 /min Alma Rosa Gonzalez [facility], Inc.; [employer] ([employer]) [facility] [place], Inc[employer] Comment on above: Pattern: Regular 09-13-2023 07:55-0500 Systolic blood pressure 123 mm[Hg] Alma Rosa Gonzalez [facility], [facility].; [facility], [employer] Comment on above: Patient Position: Sitting; Cuff Location : Left Arm; Cuff Size: Large 07-08-2023 09:26-0500 Diastolic blood pressure 68 mm[Hg] Brendan Maradiaga LPN [facility], Inc.; [employer] ([employer]) [facility] [place], [employer] Comment on above: Patient Position: Sitting; Cuff Location : Left Arm; Cuff Size: Standard 07-08-2023 09:26-0500 Heart rate 79 /min Brendan Maradiaga MEDIA BUYER [facility], [facility].; [employer] ([employer]) [facility] [place], [employer]. Comment on above: Pattern: Regular 07-08-2023 09:26-0500 Systolic blood pressure 114 mm[Hg] Brendan Maradiaga [facility], [facility].; [employer] ([employer]) [facility] [place], Inc[employer] Comment on above: Patient Position: Sitting; Cuff Location : Left Arm; Cuff Size: Standard 06-10-2023 09:45-0500 Body height 167.64 cm Nilsa Roberto LPN [facility], [facility].; [facility], [facility]. 06-10-2023 09:45-0500 Body mass index (BMI) [Ratio] 31.31 kg/m2 Nilsa Roberto LPN [facility], [facility].; [facility], [facility]. 06-10-2023 09:45-0500 Body surface area Derived from formula 1.97 m2 Nilsa Roberto LPN [facility], [facility].; [facility], [employer] 06-10-2023 09:45-0500 Body temperature 98 [degF] Nilsa Roberto MALLORY [facility], Inc.; [employer] Comment on above: Method: Tympanic 06-10-2023 09:45-0500 Body weight 88 kg Nilsa Pardeepclyde TEJADA [facility], Inc.; [employer] 06-10-2023 09:45-0500 Diastolic blood pressure 72 mm[Hg] Nilsa Pardeep TEJADA [facility], [facility].; [employer] Comment on above: Patient Position: Sitting; Cuff Location : Left Arm; Cuff Size: Standard 06-10-2023 09:45-0500 Heart rate 92 /min Nilsa Roberto LPN [facility], [facility].; [employer] Comment on above: Pattern: Regular 06-10-2023 09:45-0500 Systolic blood pressure 131 mm[Hg] Nilsa Roberto LPN [facility], [facility].; [employer] Comment on above: Patient Position: Sitting; Cuff Location : Left Arm; Cuff Size: Standard 08-21-2019 15:52-0500 Body height 167.64 cm Alma Rosa Gonzalez MALLORY [facility], Inc.; [employer] ([employer]) [facility] [place], [employer] 08-21-2019 15:52-0500 Body mass index (BMI) [Ratio] 27.6 kg/m2 Libia Lisa MEDIA BUYER [facility], Inc.; [employer] 08-21-2019 15:52-0500 Body surface area Derived from formula 1.87 m2 Libiafernando Gonzalez LPN [facility], Inc.; [employer] 08-21-2019 15:52-0500 Body temperature 98.1 [degF] Alma Rosa Caceresuckey MEDIA BUYER [facility], [facility].; [employer], [employer] Comment on above: Method: Tympanic 08-21-2019 15:52-0500 Body weight 77.57 kg Alma Rosa [place] MALLORY [facility], Inc.; [employer] 08-21-2019 15:52-0500 Diastolic blood pressure 64 mm[Hg] Libia Lisa [facility], Inc.; [employer], [employer]. Comment on above: Patient Position: Sitting; Cuff Location : Left Arm; Cuff Size: Large 08-21-2019 15:52-0500 Heart rate 97 /min Alma Rosa Gonzalez [facility], Inc.; [employer], [employer] Comment on above: Pattern: Regular 08-21-2019 15:52-0500 Inhaled oxygen concentration 20 % Alma Rosa Gonzalez MEDIA BUYER [facility], [facility].; [place] [employer] Comment on above: Room air 08-21-2019 15:52-0500 Inhaled oxygen concentration 21 % Alma Rosa Gonzalez [facility], Inc.; [employer], [employer]. Comment on above: Room air 08-21-2019 15:52-0500 SaO2% (BldA) [Mass fraction] 96 % Alma Rosa Gonzalez [facility], Inc.; [employer], [employer]. 08-21-2019 15:52-0500 Systolic blood pressure 122 mm[Hg] Alma Rosa Gonzalez [facility], Inc.; [employer], [employer]. Comment on above: Patient Position: Sitting; Cuff Location : Left Arm; Cuff Size: Large 06-14-2019 14:30-0500 Body height 167.64 cm Shi Wedella TEJADA [facility], Inc.; [employer] 06-14-2019 14:30-0500 Body mass index (BMI) [Ratio] 28.09 kg/m2 Shi Wedella [facility], Inc.; [employer], [employer] 06-14-2019 14:30-0500 Body surface area Derived from formula 1.89 m2 Shi Wedella [facility], Inc.; [employer], [employer] 06-14-2019 14:30-0500 Body temperature 99.1 [degF] Shi Alamodella [facility], Inc.; [employer], [employer] Comment on above: Method: Tympanic 06-14-2019 14:30-0500 Body weight 78.95 kg Shi Rivera [facility], Inc.; [employer]. 06-14-2019 14:30-0500 Diastolic blood pressure 66 mm[Hg] Shi Alamodella TEJADA [employer]. Comment on above: Patient Position: Sitting; Cuff Location : Left Arm; Cuff Size: Standard 06-14-2019 14:30-0500 Heart rate 100 /min Shi Rivera LPN [place] [employer], [employer]. Comment on above: Pattern: Regular 06-14-2019 14:30-0500 Inhaled oxygen concentration 20 % Shi Wedella [facility] [employer]. Comment on above: Room air 06-14-2019 14:30-0500 Inhaled oxygen concentration 21 % Shi Jasmeetdella [facility] [employer], [employer]. Comment on above: Room air 06-14-2019 14:30-0500 SaO2% (BldA) [Mass fraction] 98 % Shi Jasmeetdella [facility] [employer]. 06-14-2019 14:30-0500 Systolic blood pressure 111 mm[Hg] Shi Wedella [facility]; [employer]. Comment on above: Patient Position: Sitting; Cuff Location : Left Arm; Cuff Size: Standard 05-31-2019 09:03-0500 Body height 167.64 cm Shi Rivera LPN [place] [employer]. 05-31-2019 09:03-0500 Body mass index (BMI) [Ratio] 28.08 kg/m2 Shi Rivera [facility] Hospital[facility]ris[facility] Labs Ltd[facility]; [employer]. 05-31-2019 09:03-0500 Body surface area Derived from formula 1.89 m2 Shi Igenicadella [facility] [employer]; [employer]. 05-31-2019 09:03-0500 Body temperature 98.2 [degF] Shi Rivera [facility]; [facility] Comment on above: Method: Tympanic 05-31-2019 09:03-0500 Body weight 78.93 kg Shi Alamomercedeskaitstone TEJADA [place] [employer] ([employer]) [facility], Inc.; [employer] 05-31-2019 09:03-0500 Diastolic blood pressure 78 mm[Hg] Shi Alamodella TEJADA [place] [employer], [employer].; [employer]. Comment on above: Patient Position: Sitting; Cuff Location : Left Arm; Cuff Size: Standard 05-31-2019 09:03-0500 Heart rate 76 /min Shi Wedella TEJADA [place] [employer], [employer].; [employer]. Comment on above: Pattern: Regular 05-31-2019 09:03-0500 Inhaled oxygen concentration 20 % Shi Jasmeetdella MEDIA BUYER [place] [employer], [employer].; [employer] Comment on above: Room air 05-31-2019 09:03-0500 Inhaled oxygen concentration 21 % Shi Rivera MEDIA BU[employer]ER [employer]. Comment on above: Room air 05-31-2019 09:03-0500 SaO2% (BldA) [Mass fraction] 98 % Shi Wedella [facility] [employer], Inc.; [employer] 05-31-2019 09:03-0500 Systolic blood pressure 120 mm[Hg] Shi Wedella TEJADA [facility]. Comment on above: Patient Position: Sitting; Cuff Location : Left Arm; Cuff Size: Standard 04-24-2019 11:34-0400 Body height 167.64 cm Radha Diaz RN [place] [employer], [employer].; [employer]. 04-24-2019 11:34-0400 Body mass index (BMI) [Ratio] 27.6 kg/m2 Radha Diaz RN [place] [employer] 04-24-2019 11:34-0400 Body surface area Derived from formula 1.87 m2 Radha Diaz RN [place] [employer]. 04-24-2019 11:34-0400 Body temperature 99.2 [degF] Radha Diaz RN [employer].; [employer]. Comment on above: Method: Tympanic 04-24-2019 11:34-0400 Body weight 77.57 kg Radha Diaz RN [employer].; [employer] 04-24-2019 11:34-0400 Diastolic blood pressure 65 mm[Hg] Radha Diaz RN [employer].; [employer]. Comment on above: Patient Position: Sitting; Cuff Location : Right Arm; Cuff Size: Standard 04-24-2019 11:34-0400 Heart rate 75 /min Radha Diaz RN [employer].; [employer]. Comment on above: Pattern: Regular 04-24-2019 11:34-0400 Systolic blood pressure 96 mm[Hg] Radha Diaz RN [employer].; [employer]. Comment on above: Patient Position: Sitting; Cuff Location : Right Arm; Cuff Size: Standard 12-05-2018 10:230400 Body height 167.64 cm Lo Samuel PA-C Work Phone: [employer]; [employer]. 12-05-2018 10:23-0400 Body mass index (BMI) [Ratio] 26.79 kg/m2 [employer] PA-C Work Phone: [employer]; [employer]. 12-05-2018 10:23-0400 Body surface area Derived from formula 1.85 m2 Lo Samuel PA-C Work Phone: [employer]; [employer]. 12-05-2018 10:[id number] Body temperature 98.4 [degF] Lo Samuel PA-C Work Phone: [employer]; [employer]. Comment on above: Method: Tympanic 12-05-2018 10:230400 Body weight 75.3 kg Lo Samuel PA-C Work Phone: [employer]; [employer]. 12-05-2018 10:23-0400 Diastolic blood pressure 64 mm[Hg] Lo Samuel PA-C Work Phone: [employer]; [employer]. Comment on above: Patient Position: Sitting; Cuff Location : Left Arm; Cuff Size: Standard 12-05-2018 10:23-0400 Heart rate 73 /min Lo Samuel PA-C Work Phone: [employer]; [employer]. Comment on above: Pattern: Regular 12-05-2018 10:23-0400 Inhaled oxygen concentration 20 % Lo Samuel PA-C Work Phone: [employer]; [employer]. Comment on above: Room air 12-05-2018 10:23-0400 Inhaled oxygen concentration 21 % Mercy Cancino MD Work Phone: [employer]; [employer]. Comment on above: Room air 12-05-2018 10:23-0400 SaO2% (BldA) [Mass fraction] 99 % Lo Samuel PA-C Work Phone: [employer]; [employer]. 12-05-2018 10:23-0400 Systolic blood pressure 105 mm[Hg] Lo Samuel PA-C Work Phone: [employer]; [employer]. Comment on above: Patient Position: Sitting; Cuff Location : Left Arm; Cuff Size: Standard 07-08-2018 11:59-0500 Body height 167.64 cm Radha Diaz RN [facility]; [employer]. 07-08-2018 11:59-0500 Body mass index (BMI) [Ratio] 29.05 kg/m2 Radha Diaz RN [facility]; [employer]. 07-08-2018 11:59-0500 Body surface area Derived from formula 1.91 m2 Radha Diaz RN [place] [employer], [employer].; [employer]. 07-08-2018 11:59-0500 Body temperature 99.2 [degF] Radha Diaz RN [facility]; [employer]. Comment on above: Method: Tympanic 07-08-2018 11:59-0500 Body weight 81.65 kg Radha Diaz RN [place] [employer], [employer].; [employer]. 07-08-2018 11:59-0500 Diastolic blood pressure 71 mm[Hg] Radha Diaz RN [employer], [employer]. Comment on above: Patient Position: Sitting; Cuff Location : Left Arm; Cuff Size: Standard 07-08-2018 11:59-0500 Heart rate 102 /min Radha Diaz RN [place] [employer], [employer].; [employer]. Comment on above: Pattern: Regular 07-08-2018 11:59-0500 Systolic blood pressure 119 mm[Hg] Radha Diaz RN [employer], [employer]. Comment on above: Patient Position: Sitting; Cuff Location : Left Arm; Cuff Size: Standard 07-09-2017 15:42-0500 Body height 167.64 cm Aarti Everett LPN [place] [employer] ([employer]) [facility] [place], Inc.; [employer]. 07-09-2017 15:42-0500 Body mass index (BMI) [Ratio] 28.73 kg/m2 Aarti Everett LPN [place] [employer] ([employer]M) [facility] [place], Inc.; [employer]. 07-09-2017 15:42-0500 Body surface area Derived from formula 1.9 m2 Aarti Everett LPN [facility] [employer], [employer] 07-09-2017 15:42-0500 Body temperature 97.7 [degF] Aarti Everett LPN [facility] [employer], [employer]. 07-09-2017 15:42-0500 Body weight 80.74 kg Aarti Everett LPN [place] [employer] ([employer]M) [facility] [place], Inc.; [employer]. 07-09-2017 15:42-0500 Diastolic blood pressure 69 mm[Hg] Aarti Everett MALLORY [facility], Inc.; [employer], [employer] Comment on above: Patient Position: Sitting; Cuff Location : Left Arm; Cuff Size: Standard 07-09-2017 15:42-0500 Heart rate 86 /min Aarti Everett MEDIA BUYER [facility], Inc.; [employer], [employer] Comment on above: Pattern: Regular 07-09-2017 15:42-0500 Systolic blood pressure 131 mm[Hg] Aarti Everett MEDIA BUYER [facility], Inc.; [employer], [employer] Comment on above: Patient Position: Sitting; Cuff Location : Left Arm; Cuff Size: Standard 11-18-2016 11:17-0400 Body height 167.64 cm Alma Rosa Gonzalez MEDIA BUYER [facility], Inc.; [employer] 11-18-2016 11:17-0400 Body mass index (BMI) [Ratio] 27.6 kg/m2 Alma Rosa Gonzalez [facility], Inc.; [employer], [employer] 11-18-2016 11:17-0400 Body surface area Derived from formula 1.87 m2 Alma Rosa Gonzalez [facility], Inc.; [employer], [employer]. 11-18-2016 11:17-0400 Body weight 77.57 kg Alma Rosa Gonzalez [facility], Inc.; [employer] 11-18-2016 11:17-0400 Diastolic blood pressure 77 mm[Hg] Alma Rosa Gonzalez [facility], Inc.; [employer] Comment on above: Patient Position: Sitting; Cuff Location : Left Arm; Cuff Size: Large 11-18-2016 11:17-0400 Heart rate 82 /min Alma Rosa Gonzalez [facility], Inc.; [employer], [employer]. Comment on above: Pattern: Regular 11-18-2016 11:17-0400 Systolic blood pressure 128 mm[Hg] Alma Rosa Gonzalez LPN [place] [employer] ([employer]) [facility] [place], Inc.; [employer], [employer]. Comment on above: Patient Position: Sitting; Cuff Location : Left Arm; Cuff Size: Large 10-28-2016 09:46-0400 Body height 167.64 cm Alma Rosa Gonzalez LPN [facility], Inc.; [employer] 10-28-2016 09:46-0400 Body mass index (BMI) [Ratio] 27.92 kg/m2 Alma Rosa Gonzalez [facility], Inc.; [employer], [employer] 10-28-2016 09:46-0400 Body surface area Derived from formula 1.88 m2 Alma Rosa Gonzalez MEDIA BUYER [facility], Inc.; [employer] 10-28-2016 09:46-0400 Body temperature 98.6 [degF] Alma Rosa Gonzalez [facility], Inc.; [employer] Comment on above: Method: Tympanic 10-28-2016 09:46-0400 Body weight 78.47 kg Alma Rosa Gonzalez MEDIA BUYER [facility], Inc.; [employer], [employer] 10-28-2016 09:46-0400 Diastolic blood pressure 74 mm[Hg] Alma Rosa Gonzalez [facility], Inc.; [employer], [employer]. Comment on above: Patient Position: Sitting; Cuff Location : Left Arm; Cuff Size: Large 10-28-2016 09:46-0400 Heart rate 86 /min Alma Rosa oGnzalez [facility], Inc.; [employer], [employer]. Comment on above: Pattern: Regular 10-28-2016 09:46-0400 Systolic blood pressure 115 mm[Hg] Alma Rosa Gonzalez [facility], Inc.; [employer] Comment on above: Patient Position: Sitting; Cuff Location : Left Arm; Cuff Size: Large 10-10-2016 09:55-0400 Body height 167.64 cm Anaid Sexton [employer] [facility], Inc.; [employer] 10-10-2016 09:55-0400 Body mass index (BMI) [Ratio] 27.44 kg/m2 Anaid Carlie [employer] [facility] [employer] (MSM) [facility] [place], Inc.; [employer], [employer] 10-10-2016 09:55-0400 Body surface area Derived from formula 1.87 m2 [facility]aid [facility] MEDIA BUYER [facility], Inc.; [employer], [employer] 10-10-2016 09:55-0400 Body temperature 99 [degF] Anaid Candelario [facility], Inc.; [employer], [employer]. Comment on above: Method: Tympanic 10-10-2016 09:55-0400 Body weight 77.11 kg Anaid Candelario [facility], Inc.; [employer] 10-10-2016 09:55-0400 Diastolic blood pressure 61 mm[Hg] Anaid Candelario [facility], Inc.; [employer], [employer]. Comment on above: Patient Position: Sitting; Cuff Location : Right Arm; Cuff Size: Standard 10-10-2016 09:55-0400 Heart rate 87 /min Anaid Pichardoach [facility], Inc.; [employer], Inc. Comment on above: Pattern: Regular 10-10-2016 09:55-0400 Systolic blood pressure 106 mm[Hg] Anaid Candelario [facility], Inc.; [employer], [employer]. Comment on above: Patient Position: Sitting; Cuff Location : Right Arm; Cuff Size: Standard 09-17-2015 10:43-0500 Body height 167.64 cm Alma Rosa Gonzalez MEDIA BUYER [facility], Inc.; [employer], [employer] 09-17-2015 10:43-0500 Body mass index (BMI) [Ratio] 28.41 kg/m2 Alma Rosa Caceresuckey [facility] [employer] ([employer]) [facility], Inc.; [employer] 09-17-2015 10:43-0500 Body surface area Derived from formula 1.89 m2 Alma Rosa Jefferson Lisa MEDIA BUYER [place] [employer] (MSM) [facility], Inc.; [employer], [employer] 09-17-2015 10:43-0500 Body temperature 98.3 [degF] Alma Rosa Gonzalez MEDIA BUYER [place] [employer] (MSM) [facility], Inc.; [employer]. Comment on above: Method: Tympanic 09-17-2015 10:43-0500 Body weight 79.83 kg Alma Rosa Gonzalez MEDIA BUYER [place] [employer] (MSM) [facility], Inc.; [employer]. 09-17-2015 10:43-0500 Diastolic blood pressure 71 mm[Hg] Alma Rosa Gonzalez LPN [facility], Inc.; [place] [employer] ([employer]) [facility], [employer]. Comment on above: Patient Position: Sitting; Cuff Location : Left Arm; Cuff Size: Large 09-17-2015 10:43-0500 Heart rate 90 /min Alma Rosa Gonzalez LPN [facility], Inc.; [place] [employer] Comment on above: Pattern: Regular 09-17-2015 10:43-0500 Inhaled oxygen concentration 20 % Alma Rosa Gonzalez [facility], Inc.; [place] [employer] (MSM) [facility], Inc. Comment on above: Room air 09-17-2015 10:43-0500 Inhaled oxygen concentration 21 % Alma Rosa Gonzalez [facility], Inc.; [place] [employer] (MSM) [facility], Inc. Comment on above: Room air 09-17-2015 10:43-0500 SaO2% (BldA) [Mass fraction] 94 % Alma Rosa Gonzalez [facility], Inc.; [facility] [employer] 09-17-2015 10:43-0500 Systolic blood pressure 102 mm[Hg] Alma Rosa Gonzalez MEDIA BUYER [facility], Inc.; [facility]wood[facility] [employer]. Comment on above: Patient Position: Sitting; Cuff Location : Left Arm; Cuff Size: Large 08-27-2015 17:50-0500 Body height 167.64 cm Lo DAVIS-C Work Phone: [place] [employer] ([employer]) [facility]wood[facility] [employer].; [facility] [employer] 08-27-2015 17:50-0500 Body mass index (BMI) [Ratio] 28.41 kg/m2 Lo Samuel PA-C Work Phone: [facility]; [facility] [employer] 08-27-2015 17:50-0500 Body surface area Derived from formula 1.89 m2 Lo Samuel PA-C Work Phone: [facility]; [employer]. 08-27-2015 17:50-0500 Body temperature 100.9 [degF] Lo Samuel PA-C Work Phone: [facility]; [facility] [employer] Comment on above: Method: Tympanic 08-27-2015 17:50-0500 Body weight 79.83 kg Lo Davider PA-C Work Phone: [facility]; [employer]. 08-27-2015 17:50-0500 Diastolic blood pressure 72 mm[Hg] Lo Chavis Samuel PA-C Work Phone: [facility]; [employer]. Comment on above: Patient Position: Sitting; Cuff Location : Left Arm; Cuff Size: Standard 08-27-2015 17:50-0500 Heart rate 104 /min Lo Davider PA-C Work Phone: [facility]; [employer]. Comment on above: Pattern: Regular 08-27-2015 17:50-0500 Inhaled oxygen concentration 20 % Lo Chavis Samuel PA-C Work Phone: [facility]; [employer]. Comment on above: Room air 08-27-2015 17:50-0500 Inhaled oxygen concentration 21 % Lo Palmira Samuel PA-C Work Phone: [facility]; [employer]. Comment on above: Room air 08-27-2015 17:50-0500 SaO2% (BldA) [Mass fraction] 98 % Lo Chavis Samuel PA-C Work Phone: [facility]; [facility] [employer] 08-27-2015 17:50-0500 Systolic blood pressure 107 mm[Hg] Lo Chavis Samuel PA-C Work Phone: [employer]; [employer]. Comment on above: Patient Position: Sitting; Cuff Location : Left Arm; Cuff Size: Standard 05-06-2015 09:21-0400 Body height 167.64 cm Lo Samuel PA-C Work Phone: [facility]; [employer]. 05-06-2015 09:21-0400 Body mass index (BMI) [Ratio] 28.89 kg/m2 Lo Samuel PA-C Work Phone: [employer]; [employer]. 05-06-2015 09:21-0400 Body surface area Derived from formula 1.91 m2 Lo Samuel PA-C Work Phone: [employer]; [employer]. 05-06-2015 09:21-0400 Body temperature 99 [degF] Lo Samuel PA-C Work Phone: [employer]; [employer]. Comment on above: Method: Tympanic 05-06-2015 09:21-0400 Body weight 81.19 kg Lo Samuel PA-C Work Phone: [employer]; [employer]. 05-06-2015 09:21-0400 Diastolic blood pressure 78 mm[Hg] Lo Samuel PA-C Work Phone: [employer]; [employer]. Comment on above: Patient Position: Sitting; Cuff Location : Left Arm; Cuff Size: Standard 05-06-2015 09:21-0400 Heart rate 84 /min Lo Samuel PA-C Work Phone: [employer]; [employer]. Comment on above: Pattern: Regular 05-06-2015 09:21-0400 Systolic blood pressure 101 mm[Hg] Lo Samuel PA-C Work Phone: [employer]; [employer]. Comment on above: Patient Position: Sitting; Cuff Location : Left Arm; Cuff Size: Standard 03-12-2014 17:47-0400 Body temperature 98.3 [degF] Aarti Everett LPN [employer]. 03-12-2014 17:47-0400 Body weight 97.52 kg Aarti Everett LPN [employer]. 03-12-2014 17:47-0400 Diastolic blood pressure 67 mm[Hg] Aarti Mathew Everett M[employer] [facility], Inc.; [employer] Comment on above: Patient Position: Sitting; Cuff Location : Left Arm; Cuff Size: Standard 03-12-2014 17:47-0400 Heart rate 101 /min Aarti Everett LPN [facility], Inc.; [employer] Comment on above: Pattern: Regular 03-12-2014 17:47-0400 Inhaled oxygen concentration 20 % Aarti Everett LPN [facility], Inc.; [employer], [employer] Comment on above: Room air 03-12-2014 17:47-0400 Inhaled oxygen concentration 21 % Aarti Everett LPN [place] [employer] ([employer]) [facility] [place], Inc.; [employer]. Comment on above: Room air 03-12-2014 17:47-0400 SaO2% (BldA) [Mass fraction] 98 % Aarti Everett LPN [facility], Inc.; [employer], [employer] 03-12-2014 17:47-0400 Systolic blood pressure 97 mm[Hg] Aarti Everett LPN [place] [employer] ([employer]) [facility] [place], Inc.; [employer], [employer]. Comment on above: Patient Position: Sitting; Cuff Location : Left Arm; Cuff Size: Standard 02-14-2014 08:15-0400 Body height 167.64 cm Shi Rivera LPN [place] [employer] ([employer]) [facility] [place], Inc.; [employer] 02-14-2014 08:15-0400 Body mass index (BMI) [Ratio] 33.25 kg/m2 Shi Rivera LPN [place] [employer] ([employer]) [facility] [place], Inc.; [employer], [employer] 02-14-2014 08:15-0400 Body surface area Derived from formula 2.03 m2 Shi Rivera LPN [place] [employer] (MS[employer]) [facility] [place], Inc.; [employer] 02-14-2014 08:15-0400 Body weight 93.44 kg Shi Rivera LPN [place] [employer] ([employer]) [facility] [place], Inc.; [employer], [employer] 02-14-2014 08:15-0400 Diastolic blood pressure 79 mm[Hg] Shi Rivera LPN [place] [employer] ([employer]) [facility] [place], Inc.; [facility] [employer] Comment on above: Patient Position: Sitting; Cuff Location : Left Arm; Cuff Size: Standard 02-14-2014 08:15-0400 Heart rate 98 /min Shi Alamodella TEJADA [place] [employer] ([employer]) [facility]wood[facility] [employer].; [facility] [employer] Comment on above: Pattern: Regular 02-14-2014 08:15-0400 Inhaled oxygen concentration 20 % Shi Jackstone [facility] [employer] ([employer]) [facility] [employer].; [place] [employer]. Comment on above: Room air 02-14-2014 08:15-0400 Inhaled oxygen concentration 21 % Shi Wedella TEJADA [facility]; [facility] [employer] Comment on above: Room air 02-14-2014 08:15-0400 SaO2% (BldA) [Mass fraction] 98 % Shi Wedella MEDIA BUYER [place] [employer] ([employer]) [facility] [employer] 02-14-2014 08:15-0400 Systolic blood pressure 117 mm[Hg] Shi Wedella [facility] [employer].; [facility] [employer] Comment on above: Patient Position: Sitting; Cuff Location : Left Arm; Cuff Size: Standard 08-08-2012 13:02-0500 Body height 167.64 cm Lo Samuel PA-C Work Phone: [facility]; [facility] [employer] 08-08-2012 13:02-0500 Body mass index (BMI) [Ratio] 30.51 kg/m2 Ol Samuel PA-C Work Phone: [facility]; [facility] [employer] 08-08-2012 13:02-0500 Body surface area Derived from formula 1.95 m2 Lo Samuel PA-C Work Phone: [facility]; [facility] [employer] 08-08-2012 13:02-0500 Body temperature 97.8 [degF] Lo Samuel PA-C Work Phone: [facility]; [facility] [employer] Comment on above: Method: Tympanic 08-08-2012 13:02-0500 Body weight 85.73 kg Lo Samuel PA-C Work Phone: [employer] 08-08-2012 13:02-0500 Diastolic blood pressure 73 mm[Hg] Lo Samuel PA-C Work Phone: [employer].; [employer]. Comment on above: Patient Position: Sitting; Cuff Location : Left Arm; Cuff Size: Standard 08-08-2012 13:02-0500 Heart rate 84 /min Lo Samuel PA-C Work Phone: [employer].; [employer]. Comment on above: Pattern: Regular 08-08-2012 13:02-0500 Systolic blood pressure 130 mm[Hg] Lo Samuel PA-C Work Phone: [employer].; [employer]. Comment on above: Patient Position: Sitting; Cuff Location : Left Arm; Cuff Size: Standard 02-02-2012 11:38-0400 Body temperature 99.2 [degF] Shi Rivera LPN [employer].; [employer]. Comment on above: Method: Tympanic 02-02-2012 11:38-0400 Body weight 86.18 kg Shi Miguel TEJADA [employer]. Encounters Encounter Date Encounter Type Care Provider Facility Start: 11-10-2023 End: 11-10-2023 Office outpatient visit 15 minutes Mercy Cancino MD Work Phone: [facility] Start: 09-24-2023 End: 09-24-2023 ambulatory [facility] Start: 09-20-2023 End: 09-20-2023 Orders Mercy Cancino MD Work Phone: [facility] Start: 09-13-2023 End: 09-13-2023 Office outpatient visit 10 minutes Lo Samuel PA-C Work Phone: [employer] Start: 07-08-2023 End: 07-08-2023 Patient encounter procedure Lo Samuel PA-C Work Phone: [employer]. Start: 06-10-2023 End: 06-10-2023 Office outpatient visit 15 minutes Lo Samuel PA-C Work Phone: [employer]. Start: 12-09-2022 End: 12-09-2022 ambulatory [facility] Facility:[facility] Start: 12-01-2022 End: 12-01-2022 ambulatory [facility] Work Phone: Start: 12-01-2022 End: 12-01-2022 Patient encounter procedure [facility] [place] [employer] Start: 11-26-2022 End: 11-26-[address] [facility] Start: 11-19-2022 End: 11-19-2022 ambulatory HODAN [facility] Start: 08-21-2019 End: 08-21-2019 Office outpatient visit 15 minutes Lo Samuel PA-C Work Phone: [facility] Start: 06-14-2019 End: 06-15-2019 Office outpatient visit 15 minutes Lo Samuel PA-C Work Phone: [employer]. Start: 06-09-2019 End: 06-09-2019 Orders Lo Samuel PA-C Work Phone: [employer]. Start: 05-31-2019 End: 05-31-2019 Office outpatient visit 15 minutes Lo Samuel PA-C Work Phone: [facility] Start: 04-24-2019 End: 04-24-2019 Office outpatient visit 15 minutes Lo Samuel PA-C Work Phone: [employer] Start: 12-05-2018 End: 12-05-2018 Office outpatient visit 15 minutes Lo Samuel PA-C Work Phone: [employer]. Start: 07-08-2018 End: 07-08-2018 Office outpatient visit 15 minutes Lo Samuel PA-C Work Phone: [employer]. Start: 07-09-2017 End: 07-09-2017 Office outpatient visit 15 minutes Lo Samuel PA-C Work Phone: [employer]. Start: 12-01-2016 End: 12-01-2016 Orders Lo Samuel PA-C Work Phone: [employer]. Start: 11-18-2016 End: 11-18-2016 Office outpatient visit 15 minutes Lo Samuel PA-C Work Phone: [employer]. Start: 10-30-2016 End: 10-30-2016 Orders Lo Samuel PA-C Work Phone: [employer]. Start: 10-28-2016 End: 10-28-2016 Office outpatient visit 15 minutes Lo Samuel PA-C Work Phone: [employer]. Start: 10-10-2016 End: 10-10-2016 Patient encounter procedure Lo Samuel PA-C Work Phone: [employer]. Start: 09-17-2015 End: 09-17-2015 Office outpatient visit 15 minutes Lo Samuel PA-C Work Phone: [employer]. Start: 08-27-2015 End: 08-27-2015 Patient encounter procedure Lo Samuel PA-C Work Phone: [employer]. Start: 05-06-2015 End: 05-06-2015 Patient encounter procedure Lo Samuel PA-C Work Phone: [employer]. Start: 03-12-2014 End: 03-15-2014 Patient encounter procedure Lo Samuel PA-C Work Phone: [employer]. Start: 02-14-2014 End: 02-14-2014 Patient encounter procedure Lo Samuel PA-C Work Phone: [employer] Start: 02-17-2013 End: 02-17-2013 Patient encounter procedure Lo DAVIS-C Work Phone: [employer] Start: 08-30-2012 End: 08-30-2012 Patient encounter procedure Lo Samuel PA-C Work Phone: [employer] Start: 08-08-2012 End: 08-08-2012 Patient encounter procedure Lo Samuel PA-C Work Phone: [employer] Start: 02-16-2012 End: 02-16-2012 Medication Lo DAVIS-C Work Phone: [employer] Start: 02-02-2012 End: 02-02-2012 Patient encounter procedure Lo DAVIS-C Work Phone: [employer] Start: 01-26-2012 End: 01-26-2012 Medication Lo DAVIS-Celso Work Phone: [employer] Procedures Date Procedure Procedure Detail Performing Clinician Start: 06-09-2019 End: 06-09-2019 Radiologic exam chest 2 views Mariaelena Kassidy TEJADA Start: 07-09-2017 End: 07-09-2017 Body mass index documented Mercy Cancino MD Work Phone: Start: 10-30-2016 End: 11-17-2016 Ct abdomen & pelvis w/o contrst 1/> body re Mercy Cancino MD Work Phone: Appendectomy Vicky Hendricks MA Section - 2 Vicky Hendricks MA Hernia repair Vicky Sexton A Immunizations Immunization Date Immunization Notes Care Provider Fa [facility] 07-06-2014 influenza, seasonal, injectable [facility] Payers Date Payer Category Payer Self-pay [id number] 2022 Unknown [id number] 1975 Unknown [id number] 1975 Unknown [id number] 1975 Unknown [id number] [facility] [id number] Unknown [id number] Unknown [id number] [id number] [id number] Social History Date Type Detail Facility Start: 08-02-2020 Tobacco smoking stat [facility] Unknown if ever smoked [facility] Start: 1975 Sex Assigned At Female [facility] Spouse Spouse [employer] Tobacco Use: Tobacco Use: ; N ever smoker. [employer] Never smoked tobacco [employer] Work Phone: Evaluation note Note Date & Type Note Facility Evaluation note No assessment information availa ble [facility] Work Phone: Advance Directives No Advanced Directives Records Found Advance Directive Response Recorded Date/ Time Living Will No August 02 1 12:28pm Power of Shank Sorter No August 02 021 12:28pm Summary Purpose Family History No Family History Records Found No Known Family History Onset: 4 Status:Active No Known Family History Onset: 4 Status:Active Additional Source Comments Care Teams (unrecognized sec tion and content) Team Status: Active Member Role Status Dates Dr. Mercy Cancino MD Family Provider Active Dr. Mercy Cancino MD Primary Care Provider Active Team Status: Inactive Member Role Status Dates Dr. Mercy Cancino MD Primary Care Provider Active Dr. Lizabeth Heart DO Attending Provider Active Goals (unrecognized section and content) Goals may be documented in a n alternate section INFORMATION SOURCE (unrecogn ized section and content) DATE CREATED AUTHOR 09/29/2023 [facility] ([place]) DATE CREATED AUTHOR AUTHOR'S ORGANIZ ATION 10/13/2023 [facility] DATE CREATED AUTHOR AUTHOR'S ORGANIZ ATION 02/15/2025 [facility] FOR RECORDS PERTAINING TO PATIENTS WHO ARE OR HAVE BEEN ENROLLED IN A CHEMICAL DEPENDENCY/SUBSTANCEABUSE PROGRAM, SOME INFORMATION MAY BE OMITTED. This clinical summary was aggregated from multiple sources. Caution should be exercised in using it in the provision of clinical care. This summary normalizes information from multiple sources, and as a consequence, information in this document may materially change the coding, format and clinical context of patient data. In addition, data may be omitted in some cases. CLINICAL DECISIONS SHOULD BE BASED ON THE PRIMARY CLINICAL RECORDS. [facility]. provides no warranty or guarantee of the accuracy or completeness of information in this document.
[2025-06-27 12:09] LABS: HPV APTIMA, High Risk Negative (Negative)
== END | disposition home or self-care (01) ==
LOC: LABSPEC 16:21
PROVIDERS: PCP Family Medicine; Referring Provider Nurse Practitioner Family; Visit Provider Nurse Practitioner Family
DX: Z12.4 Encounter for screening for malignant neoplasm of cervix (principal)
CPT/HCPCS: 87624; 88175; G0145